=== PATIENT | male | born 1940 | race Caucasian/White ===

== ENCOUNTER → 2023-09-22 13:34 | Outpatient (REF) | payer MEDICARE, OTHER, SELFPAY | LOC: HWRAD 13:34 | PROVIDERS: ATTENDING PHYSICIAN Family Medicine | DX: R22.1 Localized swelling, mass and lump, neck (principal); M54.50 Low back pain, unspecified | CPT/HCPCS: 72110; 76536 ==

== ENCOUNTER → 2023-11-09 12:56 | Outpatient (REF) | payer MEDICARE, OTHER, SELFPAY | LOC: HWRAD 12:56 | PROVIDERS: ATTENDING PHYSICIAN Otolaryngology; FAMILY PHYSICIAN Family Medicine | DX: R22.1 Localized swelling, mass and lump, neck (principal) | CPT/HCPCS: 70491; Q9967 ==

== ENCOUNTER 2024-03-20 06:14 | Outpatient (RCR) | payer MEDICARE, OTHER, SELFPAY | END 2024-03-20 23:59 | disposition home or self-care (01) | LOC: RST 06:14 | PROVIDERS: ATTENDING PHYSICIAN Internal Medicine | DX: C01 Malignant neoplasm of base of tongue (principal); R13.12 Dysphagia, oropharyngeal phase | CPT/HCPCS: 92526; 92610 ==

== ENCOUNTER 2024-04-20 08:58 | Outpatient (RCR) | payer MEDICARE, OTHER, SELFPAY | END 2024-04-20 23:59 | disposition home or self-care (01) | LOC: RST 08:58 | PROVIDERS: ATTENDING PHYSICIAN Internal Medicine | DX: C01 Malignant neoplasm of base of tongue (principal); R13.12 Dysphagia, oropharyngeal phase | CPT/HCPCS: 92526 ==

== ENCOUNTER → 2025-05-23 13:46 | Outpatient (REF) | payer MEDICARE, OTHER, SELFPAY | LOC: RAD 13:46 | PROVIDERS: ATTENDING PHYSICIAN Radiology Radiation Oncology; FAMILY PHYSICIAN Family Medicine | DX: C09.9 Malignant neoplasm of tonsil, unspecified (principal); I65.23 Occlusion and stenosis of bilateral carotid arteries | CPT/HCPCS: 93880 ==